=== PATIENT | male | born 1950 | race Asian ===

== ENCOUNTER 2019-07-07 10:37 | Emergency (ER) | payer MEDICAID ==
[~2019-07-07] VITALS: Ht 170.2 cm; Wt 57.6 kg
[2019-07-07 10:42] VITALS: Ht 170.2 cm; Wt 57.6 kg
[2019-07-07 11:30] LABS: CARBON DIOXIDE 26.4 mmol/L (21-32); CREATININE SERUM 1.3 mg/dL (0.7-1.3); POTASSIUM SERUM 4.3 mmol/L (3.5-5.1)
[2019-07-07 11:34] LABS: ALBUMIN 4.1 g/dL (3.4-5.0); BILIRUBIN TOTAL 0.96 mg/dL (0.20-1.00)
[2019-07-07 11:37] LABS: BASOPHIL % 0.4 % (0-2); PLATELET COUNT 203 x10^3mcL (130-400); RED CELL DISTRIBUTION WIDTH 13.2 % (11.5-14.5)
[2019-07-07 11:39] LABS: TOTAL PROTEIN, SERUM 8.5 g/dL (6.4-8.2)
[2019-07-07 14:24] LABS: microscopic required? YES
[2019-07-07 14:25] LABS: urine erythrocyte 1+ (NEGATIVE)
[2019-07-07 16:18] VITALS: BP 97/65
== END 2019-07-07 15:50 | disposition short-term general hospital (02) ==
LOC: ED 10:37
PROVIDERS: Emergency Medicine
DX: R55 Syncope and collapse (principal); I10 Essential (primary) hypertension; N39.0 Urinary tract infection, site not specified
CPT/HCPCS: 36415; 83880; Q0092

== ENCOUNTER 2019-09-02 08:23 | Inpatient (IN) | payer OTHER ==
[~2019-09-02] VITALS: Ht 167.6 cm; Wt 55.8 kg
[2019-09-02 09:57] LABS: BASOPHIL % 0.4 % (0-2); PLATELET COUNT 147 x10^3mcL (130-400); RED CELL DISTRIBUTION WIDTH 13.6 % (11.5-14.5)
[2019-09-02 10:51] LABS: ALBUMIN 4.2 g/dL (3.4-5.0); CARBON DIOXIDE 29.4 mmol/L (21-32); CHLORIDE SERUM 106 mmol/L (98-107); CREATININE SERUM 0.9 mg/dL (0.7-1.3); GFR1 > 60 mL/min; GLUCOSE SERUM 128 mg/dL (74-106); SODIUM SERUM 143 mmol/L (136-145); TOTAL PROTEIN, SERUM 7.9 g/dL (6.4-8.2)
[2019-09-02 10:52] LABS: ALKALINE PHOSPHATASE 63 U/L (46-116); ALT/SGPT 32 U/L (16-63); AST/SGOT 21 U/L (15-37); BILIRUBIN TOTAL 0.68 mg/dL (0.20-1.00); CALCIUM 8.9 mg/dL (8.5-10.1)
[2019-09-02] MEDS ORDERED: DRAMAMINE LESS25 MG (12:12)
[2019-09-02] MEDS ORDERED: METFORMIN500 M1 (12:12)
[2019-09-02] MEDS ORDERED: PROA PO (12:13)
[2019-09-02] MEDS ORDERED: ZOF4 (12:14)
[2019-09-02] MEDS ORDERED: FLUDROCORTISON0.1 MG (12:14)
[2019-09-02 14:44] VITALS: BP 178/95
[2019-09-02 17:12] VITALS: BP 160/100
[2019-09-02 20:46] VITALS: BP 139/80
[2019-09-03] VITALS (8 sets, daily range): BP systolic 82–167; BP diastolic 46–110
[2019-09-03 07:03] LABS: BASOPHIL % 0.2 % (0-2); PLATELET COUNT 154 x10^3mcL (130-400)
[2019-09-03 07:57] LABS: microscopic required? NO
[2019-09-03 07:59] LABS: CARBON DIOXIDE 30.2 mmol/L (21-32); CHLORIDE SERUM 105 mmol/L (98-107); GFR1 > 60 mL/min; GLUCOSE SERUM 118 mg/dL (74-106); POTASSIUM SERUM 4.1 mmol/L (3.5-5.1); SODIUM SERUM 142 mmol/L (136-145)
[2019-09-03 08:00] LABS: CALCIUM 9.4 mg/dL (8.5-10.1)
[2019-09-03 09:24] LABS: UA SPECIFIC GRAVITY 1.015 (1.005-1.035); urine erythrocyte NEGATIVE (NEGATIVE)
[2019-09-04] VITALS (7 sets, daily range): BP systolic 88–118; BP diastolic 49–87
[2019-09-04] MEDS ORDERED: FLO1 PO (10:27)
[2019-09-05 04:48] VITALS: BP 110/73
[2019-09-05 08:02] VITALS: BP 134/83
[2019-09-05 09:27] LABS: BASOPHIL % 0.2 % (0-2); PLATELET COUNT 155 x10^3mcL (130-400); RED CELL DISTRIBUTION WIDTH 14.2 % (11.5-14.5)
[2019-09-05 09:49] LABS: CARBON DIOXIDE 27.7 mmol/L (21-32); CHLORIDE SERUM 106 mmol/L (98-107); POTASSIUM SERUM 4.1 mmol/L (3.5-5.1); SODIUM SERUM 143 mmol/L (136-145)
[2019-09-05 09:50] LABS: CALCIUM 9.1 mg/dL (8.5-10.1); CREATININE SERUM 1.2 mg/dL (0.7-1.3); GFR1 > 60 mL/min; GLUCOSE SERUM 116 mg/dL (74-106); MAGNESIUM 2.4 mg/dL (1.8-2.4)
[2019-09-05 11:49] VITALS: BP 163/92
[2019-09-05 16:23] VITALS: BP 161/91; BP 99/98
[2019-09-05 17:15] VITALS: BP 161/91
[2019-09-05 21:08] VITALS: BP 125/76
[2019-09-06 05:53] VITALS: BP 111/73
[2019-09-06 07:02] LABS: BASOPHIL % 0.6 % (0-2); PLATELET COUNT 153 x10^3mcL (130-400); RED CELL DISTRIBUTION WIDTH 13.8 % (11.5-14.5)
[2019-09-06 07:42] LABS: POTASSIUM SERUM 4.2 mmol/L (3.5-5.1); SODIUM SERUM 144 mmol/L (136-145)
[2019-09-06 07:43] LABS: CALCIUM 8.7 mg/dL (8.5-10.1); CARBON DIOXIDE 28.2 mmol/L (21-32); CHLORIDE SERUM 108 mmol/L (98-107); CREATININE SERUM 1.1 mg/dL (0.7-1.3); GFR1 > 60 mL/min; GLUCOSE SERUM 107 mg/dL (74-106); MAGNESIUM 2.4 mg/dL (1.8-2.4)
[2019-09-06 08:39] VITALS: BP 107/72
[2019-09-06 11:51] VITALS: BP 106/67
[2019-09-06 13:30] VITALS: BP 110/77
[2019-09-06 14:16] VITALS: BP 95/66
== END 2019-09-06 17:59 | DRG 204 ==
LOC: ED 08:23 → DU 10:46
PROVIDERS: Student in an Organized Health Care Education/Training Program; ADMIT Internal Medicine
PROC: 0HQ1XZZ Repair Face Skin, External Approach (ICD-10-PCS; principal; 2019-09-02)
DX: I95.1 Orthostatic hypotension (principal); E11.9 Type 2 diabetes mellitus without complications; S02.2XXA Fracture of nasal bones, initial encounter for closed fracture; S01.81XA Laceration without foreign body of other part of head, initial encounter; N40.0 Benign prostatic hyperplasia without lower urinary tract symptoms; I10 Essential (primary) hypertension; W17.89XA Other fall from one level to another, initial encounter; Y93.89 Activity, other specified; Y92.012 Bathroom of single-family (private) house as the place of occurrence of the external cause; Z79.84 Long term (current) use of oral hypoglycemic drugs; Z79.899 Other long term (current) drug therapy
CPT/HCPCS: 82962; 84439; 97110-GP; 97112-GP; 97116-GP; 97530-GP; G0378; J7030; J8597; Q0092